=== PATIENT | female | born 2000 | race African-American/Black ===

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

== ENCOUNTER 2021-01-14 09:01 | Emergency (ER) | payer OTHER ==
[~2021-01-14] VITALS: Ht 154.9 cm; Wt 68.2 kg
[2021-01-14] MEDS ORDERED: DIFL150T PO (12:20)
[2021-01-14] MEDS ORDERED: FLAG500T PO (12:20)
[2021-01-14 12:21] VITALS: BP 125/81
[2021-01-14 13:22] LABS: CHLAMYDIA DNA AMPLIFICATION NEGATIVE (NEGATIVE); GC DNA AMPLIFICATION NEGATIVE (NEGATIVE)
== END 2021-01-14 12:24 | disposition home or self-care (01) ==
LOC: M ED 09:01
DX: N76.0 Acute vaginitis (principal); B37.3 Candidiasis of vulva and vagina

== ENCOUNTER 2021-03-19 11:40 | Emergency (ER) | payer OTHER ==
[~2021-03-19] VITALS: Ht 154.9 cm; Wt 77.2 kg
[~2021-03-19 11:40] MED LIST: DIFL150T PO; FLAG500T PO
[2021-03-19 13:03] LABS: RSV AMPLIFICATION NEGATIVE (NEGATIVE)
[2021-03-19 13:34] VITALS: BP 116/71
== END 2021-03-19 13:47 | disposition home or self-care (01) ==
LOC: M ED 11:40
DX: R09.81 Nasal congestion (principal); R51.9 Headache, unspecified; R05 Cough; R53.81 Other malaise

== ENCOUNTER 2021-05-15 19:10 | Emergency (ER) | payer OTHER ==
[~2021-05-15] VITALS: Ht 154.9 cm; Wt 76.4 kg
[2021-05-15 19:11] VITALS: BP 130/68
== END 2021-05-15 22:03 | disposition left against medical advice (07) ==
LOC: M ED 19:10
DX: Z53.21 Procedure and treatment not carried out due to patient leaving prior to being seen by health care provider (principal)